=== PATIENT | female | born 1990 | race Caucasian/White ===

== ENCOUNTER 2018-05-22 12:04 | Emergency (ER) | payer OTHER ==
[2018-05-22] MEDS: ONDANSETRON (ODT) 4 MG TAB ODT (14:04)
[2018-05-22] MEDS: KETOROLAC 60 MG INJ IM (14:10)
[2018-05-22] MEDS: ACETAMINOPHEN 500 MG TAB PO (14:12)
== END 2018-05-22 14:19 | disposition home or self-care (01) ==
LOC: FTE 12:04
DX: S09.90XA Unspecified injury of head, initial encounter (principal); T14.8XXA Other injury of unspecified body region, initial encounter; W20.8XXA Other cause of strike by thrown, projected or falling object, initial encounter; Y92.89 Other specified places as the place of occurrence of the external cause
CPT/HCPCS: 81025; 96372; 99284-25